=== PATIENT | male | born 1960 | race Caucasian/White ===

== ENCOUNTER 2017-06-03 22:53 | Observation (INO) | payer MEDICAID, SELFPAY ==
[2017-06-03 22:59] VITALS: BP 132/76; PULSE 97; RESP 18; TEMP 36.6; O2SAT 97; BMI 21.4
--- NOTE | 2017-06-03 23:13 | XR_ITS ---
XR chest AP HISTORY: ITS.REASON: chest pain ORDERING PHYSICIAN: Pankaj Wilson MD PATIENT AGE: 56 years COMPARISON: None available FINDINGS: The cardiomediastinal silhouette and pulmonary vascularity are within normal limits. The lungs are clear without infiltrates, suspicious nodules, or pleural effusions. There is a bone plate overlying the lower cervical spine. Old granulomatous disease with calcified left perihilar lymph nodes and calcified granuloma in the left midlung. No acute bony abnormalities. IMPRESSION: No acute finding
--- NOTE | 2017-06-03 23:15 | PC.NURSE ---
Strong smell of etoh present
[2017-06-03 23:35] LABS: Basophils # 0.1 K/mm3 (0-0.2); Eosinophils # 0.2 K/mm3 (0.0-0.4); Hematocrit 43.4 % (42.0-52.0); Hemoglobin 14.4 g/dL (14.1-18.0); Lymphocytes % 29.9 K/mm3 (10-50); Mean Corpuscular HGB Conc 33.1 g/dL (31.8-35.4); Mean Corpuscular Hemoglobin 34.3 pg (27.0-31.2); Mean Corpuscular Volume 103.7 fl (80-94); Mean Platelet Volume 7.8 fl (7.4-10.4); Monocytes # 0.5 K/mm3 (0.1-1.0); Monocytes % 7.7 % (1.7-9.3); Neutrophils # 3.8 K/mm3 (1.8-7.8); Neutrophils % 58.5 % (37.0-80.0); Platelet Count 285 K/mm3 (142-424); Red Blood Count 4.18 M/mm3 (4.60-6.20); Red Cell Distribution Width 13.1 % (11.5-17.5); White Blood Count 6.6 K/mm3 (4.8-10.8)
--- NOTE | 2017-06-03 23:42 | HMH.EDCP ---
ED Disposition Clinical Impression: Chest pain, CAD (coronary artery disease), HTN (hypertension), Tobacco abuse Disposition: Still a Patient Condition on Discharge: Fair - Critical Care Critical Care Time: No Attestation: On , the high probability of a clinically significant, sudden or life threatening deterioration of the following system(s) required my full and direct attention, intervention and personal management. The time I documented below is in addition to time spent performing reported procedures but includes the following listed in this critical care notation. Medical Decision Making - Chano Inquiry Pt receiving controlled substance: No Chano was queried for this patient: No Vital Signs: 06/03/17 22:59 06/04/17 00:13 Temperature 98 F Temperature Source Oral Pulse Rate [Radial] 97 H 95 H Respiratory Rate 18 20 Blood Pressure [Right Arm] 132/76 122/78 Blood Pressure Mean [Right Arm] 94 92 Blood Pressure Source [Right Arm] Automatic Cuff Automatic Cuff Blood Pressure Position [Right Arm] Sitting Sitting 02 Sat by Pulse Oximetry 97 92 L Oxygen Delivery Method Room Air Room Air - Lab Data Lab Results 06/03/17 23:15: WBC 6.6, RBC 4.18 L, Hgb 14.4, Hct 43.4, MCV 103.7 H, MCH 34.3 H, MCHC 33.1, RDW 13.1, Plt Count 285, MPV 7.8, Neut % (Auto) 58.5, Lymph % (Auto) 29.9, [place] % (Auto) 7.7, Eos % (Auto) 3.0, Baso % (Auto) 1.0, Neut # (Auto) 3.8, Lymph # (Auto) 2.0, [place] # (Auto) 0.5, Eos # (Auto) 0.2, Baso # (Auto) 0.1 06/03/17 23:15: Sodium 139, Potassium 3.4 L, Chloride 104, Carbon Dioxide 25, Anion Gap 13.4, BUN 9, Creatinine 0.74, Estimated Creat Clear 103, Estimated GFR 110, Est GFR ( Amer) 133, Glucose 118 H, Calcium 8.4 L, Total Bilirubin 0.3, AST 83 H, ALT 97 H, Alkaline Phosphatase 89, Total Protein 7.2, Albumin 3.4, Globulin 3.8 H, Albumin/Globulin Ratio 0.9 L 06/03/17 23:15: Total Creatine Kinase 150, CK-MB (CK-2) 3.9 H, CK-MB (CK-2) Rel Index 2.6, Troponin I < 0.02 Result diagrams: 06/03/17 23:15 06/03/17 23:15 Orders (Tests/Meds): ED MEDICATIONS Discontinued Medications Generic Name Dose Route Start Last Admin Trade Name Sasha PRN Reason Stop Dose Admin Aspirin 324 mg 06/04/17 00:15 Aspirin 81mg Chewable Tablet PO 06/04/17 00:16 ONCE ONE ORDERS Category Date Time Status Chest XR AP view [XR chest AP] Stat Exams 06/03/17 23:13 Taken EKG Request [ECG Request by /Nse] Stat Y 06/03/17 23:12 Ordered - ECG Data Tracing #1 Normal sinus rhythm 92/min , normal P-wave QRS and T waves, early repolarization no acute findings discussed with the [facility] operations staff officer Dr. Jhaveri. ECG initial impression date: 06/03/17 ECG initial impression time: 23:46 Medical Decision Narrative: I discussed with Dr. bruce the on-call physician for unassigned patients, vitamin admit the patient for observation and consult cardiology consult. I discussed the patient EKG with Dr. Jhaveri the [facility] operations staff officer who believed that this is an repolarization no ST elevation. First set of troponin was negative patient would be admitted to Dr. bruce for rule out [place] protocol. I checked with the rooming house operator this patient has not been admitted to this hospital in the past. Chest Pain HPI - General Chief Complaint: Chest Pain Stated Complaint: c/o chest pain Time Seen by Provider: 06/03/17 23:00 Mode of Arrival: EMS Limitations: No Limitations Description of Symptoms (Recalled from ER Triage Doc. by RN): c/o pressure to chest of chest. brought in accompanied by [facility] police department - History of Present Illness HPI narrative: 56 years old white male with history of anxiety, pression, hypertension coronary artery disease that required stenting in June 2016 at [facility]. The patient claims to have no primary care physician in area. Today at 2100, he had a verbal altercation with 1 of the residents at the [facility] upon the police arrival and d
--- NOTE | 2017-06-03 23:45 | ED_ITS ---
ED Disposition Clinical Impression: Chest pain, CAD (coronary artery disease), HTN (hypertension), Tobacco abuse Disposition: Still a Patient Condition on Discharge: Fair - Critical Care Critical Care Time: No Attestation: On , the high probability of a clinically significant, sudden or life threatening deterioration of the following system(s) required my full and direct attention, intervention and personal management. The time I documented below is in addition to time spent performing reported procedures but includes the following listed in this critical care notation. Medical Decision Making - Chano Inquiry Pt receiving controlled substance: No Chano was queried for this patient: No Vital Signs: 06/03/17 22:59 06/04/17 00:13 Temperature 98 F Temperature Source Oral Pulse Rate [Radial] 97 H 95 H Respiratory Rate 18 20 Blood Pressure [Right Arm] 132/76 122/78 Blood Pressure Mean [Right Arm] 94 92 Blood Pressure Source [Right Arm] Automatic Cuff Automatic Cuff Blood Pressure Position [Right Arm] Sitting Sitting 02 Sat by Pulse Oximetry 97 92 L Oxygen Delivery Method Room Air Room Air - Lab Data Lab Results 06/03/17 23:15: WBC 6.6, RBC 4.18 L, Hgb 14.4, Hct 43.4, MCV 103.7 H, MCH 34.3 H , MCHC 33.1, RDW 13.1, Plt Count 285, MPV 7.8, Neut % (Auto) 58.5, Lymph % (Auto ) 29.9, [place] % (Auto) 7.7, Eos % (Auto) 3.0, Baso % (Auto) 1.0, Neut # (Auto) 3.8, Lymph # (Auto) 2.0, [place] # (Auto) 0.5, Eos # (Auto) 0.2, Baso # (Auto) 0.1 06/03/17 23:15: Sodium 139, Potassium 3.4 L, Chloride 104, Carbon Dioxide 25, Anion Gap 13.4, BUN 9, Creatinine 0.74, Estimated Creat Clear 103, Estimated GFR 110, Est GFR ( Amer) 133, Glucose 118 H, Calcium 8.4 L, Total Bilirubin 0.3, AST 83 H, ALT 97 H, Alkaline Phosphatase 89, Total Protein 7.2, Albumin 3.4, Globulin 3.8 H, Albumin/Globulin Ratio 0.9 L 06/03/17 23:15: Total Creatine Kinase 150, CK-MB (CK-2) 3.9 H, CK-MB (CK-2) Rel Index 2.6, Troponin I < 0.02 Result diagrams: 06/03/17 23:15 06/03/17 23:15 Orders (Tests/Meds): ED MEDICATIONS Discontinued Medications Generic Name Dose Route Start Last Admin Trade Name Sasha PRN Reason Stop Dose Admin Aspirin 324 mg 06/04/17 00:15 Aspirin 81mg Chewable Tablet PO 06/04/17 00:16 ONCE ONE ORDERS Category Date Time Status Chest XR AP view [XR chest AP] Stat Exams 06/03/17 23:13 Taken EKG Request [ECG Request by /Nse] Stat Y 06/03/17 23:12 Ordered - ECG Data Tracing #1 Normal sinus rhythm 92/min , normal P-wave QRS and T waves, early repolarization no acute findings discussed with the tube drawing supervisor Dr. Jhaveri. ECG initial impression date: 06/03/17 ECG initial impression time: 23:46 Medical Decision Narrative: I discussed with Dr. bruce the on-call physician for unassigned patients, vitamin admit the patient for observation and consult cardiology consult. I discussed the patient EKG with Dr. Jhaveri the tube drawing supervisor who believed that this is an repolarization no ST elevation. First set of troponin was negative patient would be admitted to Dr. bruce for rule out [place] protocol. I checked with the visiting housekeeper this patient has not been admitted to this hospital in the past. Chest Pain HPI - General Chief Complaint: Chest Pain Stated Complaint: c/o chest pain Time Seen by Provider:
[2017-06-03 23:52] LABS: Alanine Aminotransferase 97 U/L (12-78); Albumin Level 3.4 gm/dL (3.4-5.0); Albumin/Globulin Ratio 0.9 (1.1-1.8); Alkaline Phosphatase 89 U/L (46-116); Anion Gap 13.4 mEq/L (5-15); Aspartate Amino Transferase 83 U/L (15-37); Bilirubin,Total 0.3 mg/dL (0.2-1.0); Blood Urea Nitrogen 9 mg/dL (7-18); Calcium 8.4 mg/dL (8.5-10.1); Carbon Dioxide 25 mmol/L (21.0-32.0); Chloride 104 mmol/L (98-107); Creatinine Clearance Estimated 103 mL/min (0-300); Creatinine,Serum 0.74 mg/dL (0.70-1.30); Estimated Glomerular Filt Rate 110 ml/min (>60); GFR (African American) 133 ML/MIN (>60); Globulin 3.8 gm/dl (1.3-3.2); Glucose 118 mg/dL (74-106); Potassium 3.4 mmoL/L (3.5-5.1); Sodium 139 mmol/L (136-145); Total Protein,Serum 7.2 gm/dL (6.4-8.2)
[2017-06-04] VITALS (13 sets, daily range): BP systolic 122–167; BP diastolic 65–103; PULSE 36–106; RESP 16–20; TEMP 36.5–37.2; O2SAT 92–99; BMI 21.3
[2017-06-04 00:03] LABS: CKMB Relative Index 2.6 U/L (0-4.0); Creatine Kinase 150 U/L (39-308); Creatine Kinase MB 3.9 ng/ml (0.0-3.6); Troponin I < 0.02 ng/ml (0.00-0.06)
--- NOTE | 2017-06-04 00:12 | PC.NURSE ---
[place] [employer] department at bedside, person from court to release from custody at bedside. Alert, oriented, strong smell of ETOH present. Denies any chest pain at this time.
--- NOTE | 2017-06-04 01:13 | PC.NURSE ---
PT STATES THAT HE IS HOMELESS AND HASNT HAD ANY OF HIS MEDICATIONS FOR SEVERAL MONTHS. PT STATES HE USED A PHARMACY IN [place] BUT HAS NOT WENT TO REFILL HIS MEDICATIONS IN A LONG TIME. PT DOES NOT KNOW THE DOSING FOR HIS MEDICATIONS OR WHAT HE TAKES.
--- NOTE | 2017-06-04 05:29 | PC.NURSE ---
PATIENT ADMITTED THIS SHIFT. HE HAS BEEN COOPERATIVE. SLEEPING ON AND OFF. NO C/O CHEST PAIN SINCE HE ARRIVED TO FLOOR. VSS. PATIENT CURRENTLY IN BED WATCHING TV. WILL CONTINUE TO MONITOR.
--- NOTE | 2017-06-04 06:37 | PC.NURSE ---
DELBERT Morton, notified of order for Dr Jhaveri consult
[2017-06-04 06:43] LABS: Basophils # 0.1 K/mm3 (0-0.2); Basophils % 1.4 % (0.1-2.0); Eosinophils # 0.2 K/mm3 (0.0-0.4); Eosinophils % 3.1 % (0.1-12.0); Hematocrit 46.1 % (42.0-52.0); Hemoglobin 15.6 g/dL (14.1-18.0); Lymphocytes # 1.1 K/mm3 (0.7-4.5); Lymphocytes % 22.2 K/mm3 (10-50); Mean Corpuscular HGB Conc 33.8 g/dL (31.8-35.4); Mean Corpuscular Hemoglobin 34.9 pg (27.0-31.2); Mean Corpuscular Volume 103.4 fl (80-94); Mean Platelet Volume 7.8 fl (7.4-10.4); Monocytes # 0.5 K/mm3 (0.1-1.0); Monocytes % 9.4 % (1.7-9.3); Neutrophils # 3.2 K/mm3 (1.8-7.8); Neutrophils % 63.9 % (37.0-80.0); Platelet Count 282 K/mm3 (142-424); Red Blood Count 4.46 M/mm3 (4.60-6.20); Red Cell Distribution Width 13.1 % (11.5-17.5)
[2017-06-04 06:53] LABS: Blood Urea Nitrogen 7 mg/dL (7-18); Carbon Dioxide 27 mmol/L (21.0-32.0); Chloride 105 mmol/L (98-107); Creatinine Clearance Estimated 109 mL/min (0-300); Estimated Glomerular Filt Rate 118 ml/min (>60); GFR (African American) 142 ML/MIN (>60); Glucose 93 mg/dL (74-106); Sodium 137 mmol/L (136-145)
--- NOTE | 2017-06-04 07:33 | PC.NURSE ---
REPORT GIVEN TO Coco KU W/C
--- NOTE | 2017-06-04 08:13 | P.CONPHA_ITS ---
[facility] Pharmacy VTE Monitoring - Patient Demographics Admission date: 06/04/17 Report Date: 06/04/17 Time: 08:13 Allergies/Adverse Reactions: Patient Allergies haloperidol [From Haldol] Allergy (Unknown, Verified 06/03/17 23:09) divalproex sodium [From Depakote] Allergy (Verified 06/03/17 23:10) ketorolac [From Toradol] Allergy (Verified 06/03/17 23:09) lamotrigine [From Lamictal] Allergy (Verified 06/03/17 23:10) Height: 1.73 m Weight: 63.588 kg Patient Problems: Current Active Problems Chest pain (Acute) CAD (coronary artery disease) (Acute) HTN (hypertension) (Acute) Tobacco abuse (Acute) - VTE Risk Labs: VTE Related Lab Results Hgb 15.6 g/dL (14.1-18.0) 06/04/17 06:16 Hct 46.1 % (42.0-52.0) 06/04/17 06:16 Plt Count 282 K/mm3 (142-424) 06/04/17 06:16 BUN 7 mg/dL (7-18) 06/04/17 06:16 Creatinine 0.70 mg/dL (0.70-1.30) 06/04/17 06:16 Estimated Creat Clear 109 mL/min (0-300) 06/04/17 06:16 VTE Score: 7 VTE Risk Level: Moderate Risk Clinical Trial Participant: No - Prophylaxis VTE Prophylaxis Ordered?: Yes Types of VTE Prophylaxis: TEDS Knee High
--- NOTE | 2017-06-04 08:16 | NM_ITS ---
NM cyril perf SPECT rest str CLINICAL INDICATION: ITS.REASON: chest pain, CAD ORDERING PHYSICIAN: Pankaj Wilson MD PATIENT AGE: 56 years COMPARISON: None DOSE: 10.89 mCi technetium Myoview intravenously at rest followed by 31.1 mCi technetium Myoview following the intravenous ministration of 0.4 mg of Lexiscan. Resting blood pressure is 164/97. Stress blood pressure 136/76. FINDINGS: Ejection fraction is calculated to be 61%. No obvious wall motion abnormalities. SPECT and polar map images reviewed. No fixed or reversible defects are evident that would indicate infarction or ischemia. Slight decrease activity noted in inferior wall on the stress images on the horizontal short axis not duplicated on the additional images possibly related to diaphragmatic attenuation and of questionable clinical significance. IMPRESSION: 1. Normal ejection fraction of 61%. 2. No definite evidence of ischemia or infarction
--- NOTE | 2017-06-04 08:31 | HMH.HP ---
*Admission Date: 06/04/17 *Chief complaint: chest pain *History of present illness: Mr. Tracy is a 56-year-old male who has been incarcerated off and on for the past few years. He states he was in [place] when he got a call from a woman at the [facility]. He hitched a ride to [place] and began having some chest pressure while in the vehicle coming to [place]. He then reached the [facility] and a gentleman at the [facility] told him he was not allowed in. The two men got in an argument and the police were called. Mr. tracy states he was charged with disorderly conduct and all of the stress caused his chest pain to worsen. He did have some palpitations and some shortness of breath along with some nausea. He was taken by ambulance to the hospital and was given a nitroglycerin in the ambulance. He states his chest pain did not resolve but he developed a DOUGLASS. He is still having some chest pain at this time, although it has improved. Of note he did have a stent placed last year at [facility]. He has had a heart attack as well approximately 2-3 years ago. Cardiology has been consulted. [facility] History Medical History: Reports:: Asthma, Atrial Fibrillation, Congestive Heart Failure, Coronary Artery Disease, Hyperlipidemia, Hypertension, Myocardial Infarction, Seizures Denies:: Cancer, Diabetes Mellitus Type 1, Diabetes Mellitus Type 2, MRSA Other Surgeries: Yes: Cardiac Catheterization Amputation: No Fractures: No - *Social History Educational Level: Attended College Smoking Status: Current every day smoker Tobacco Type: cigarettes Alcohol Intake: current Alcohol Intake Frequency:: 0-2 drinks per day Occupational Status: disabled Housing: homeless - Psychiatric History Expresses thoughts of harming self/others: None Suicide Plan Description: No Plan *Family Hx:: Cancer, Coronary Artery Disease, Diabetes, Heart Attack, Hyperlipidemia, Hypertension, Stroke, Tuberculosis Review of Systems - Constitutional Reports headache(s), Denies fever(s), Denies weakness - Eyes Denies blurry vision, Denies double vision - ENT Reports nasal congestion, Denies sore throat - *Cardiovascular Reports chest pain, Reports fast heart rate - *Respiratory Reports cough, Reports shortness of breath - *Gastrointestinal Reports nausea, Denies abdominal pain, Denies loose stools, Denies vomiting - *Genitourinary Denies difficulty urinating, Denies painful urination - *Musculoskeletal Reports joint pain (back and left hip) - *Neurologic Reports headache(s), Denies dizziness, Denies weakness Meds Home Medications Medication Instructions Recorded Confirmed Type Unobtainable [Unobtainable] 06/04/17 06/04/17 History Allergies Allergy/AdvReac Type Severity Reaction Status Date / Time haloperidol [From Haldol] Allergy Unknown Verified 06/03/17 23:09 divalproex sodium Allergy Verified 06/03/17 23:10 [From Depakote] ketorolac [From Toradol] Allergy Verified 06/03/17 23:09 lamotrigine [From Lamictal] Allergy Verified 06/03/17 23:10 Exam Vital signs and Labs for Last 24 Hours: Temp Pulse Resp BP Pulse Ox 98.9 F 36 L 20 167/103 99 06/04/17 07:26 06/04/17 07:26 06/04/17 07:26 06/04/17 07:26 06/04/17 07:26 Lab Results 06/03/17 23:15: WBC 6.6, RBC 4.18 L, Hgb 14.4, Hct 43.4, MCV 103.7 H, MCH 34.3 H, MCHC 33.1, RDW 13.1, Plt Count 285, MPV 7.8, Neut % (Auto) 58.5, Lymph % (Auto) 29.9, [place] % (Auto) 7.7, Eos % (Auto) 3.0, Baso % (Auto) 1.0, Neut # (Auto) 3.8, Lymph # (Auto) 2.0, [place] # (Auto) 0.5, Eos # (Auto) 0.2, Baso # (Auto) 0.1 06/03/17 23:15: Sodium 139, Potassium 3.4 L, Chloride 104, Carbon Dioxide 25, Anion Gap 13.4, BUN 9, Creatinine 0.74, Estimated Creat Clear 103, Estimated GFR 110, Est GFR ( Amer) 133, Glucose 118 H, Calcium 8.4 L, Total Bilirubin 0.3, AST 83 H, ALT 97 H, Alkaline Phosphatase 89, Total Protein 7.2, Albumin 3.4, Globulin 3.8 H, Albumin/Globulin Ratio 0.9 L
--- NOTE | 2017-06-04 08:34 | P.HP_ITS ---
*Admission Date: 06/04/17 *Chief complaint: chest pain *History of present illness: Mr. Tracy is a 56-year-old male who has been incarcerated off and on for the past few years. He states he was in [place] when he got a call from a woman at the [facility]. He hitched a ride to [place] and began having some chest pressure while in the vehicle coming to [place]. He then reached the [facility] and a gentleman at the [facility] told him he was not allowed in. The two men got in an argument and the police were called. Mr. tracy states he was charged with disorderly conduct and all of the stress caused his chest pain to worsen. He did have some palpitations and some shortness of breath along with some nausea. He was taken by ambulance to the hospital and was given a nitroglycerin in the ambulance. He states his chest pain did not resolve but he developed a DOUGLSAS. He is still having some chest pain at this time, although it has improved. Of note he did have a stent placed last year at [facility]. He has had a heart attack as well approximately 2-3 years ago. Cardiology has been consulted. [facility] History Medical History: Reports:: Asthma, Atrial Fibrillation, Congestive Heart Failure , Coronary Artery Disease, Hyperlipidemia, Hypertension, Myocardial Infarction, Seizures Denies:: Cancer, Diabetes Mellitus Type 1, Diabetes Mellitus Type 2, MRSA Other Surgeries: Yes: Cardiac Catheterization Amputation: No Fractures: No - *Social History Educational Level: Attended College Smoking Status: Current every day smoker Tobacco Type: cigarettes Alcohol Intake: current Alcohol Intake Frequency:: 0-2 drinks per day Occupational Status: disabled Housing: homeless - Psychiatric History Expresses thoughts of harming self/others: None Suicide Plan Description: No Plan *Family Hx:: Cancer, Coronary Artery Disease, Diabetes, Heart Attack, Hyperlipidemia, Hypertension, Stroke, Tuberculosis Review of Systems - Constitutional Reports headache(s), Denies fever(s), Denies weakness - Eyes Denies blurry vision, Denies double vision - ENT Reports nasal congestion, Denies sore throat - *Cardiovascular Reports chest pain, Reports fast heart rate - *Respiratory Reports cough, Reports shortness of breath - *Gastrointestinal Reports nausea, Denies abdominal pain, Denies loose stools, Denies vomiting - *Genitourinary Denies difficulty urinating, Denies painful urination - *Musculoskeletal Reports joint pain (back and left hip) - *Neurologic Reports headache(s), Denies dizziness, Denies weakness Meds Home Medications Medication Instructions Recorded Confirmed Type Unobtainable [Unobtainable] 06/04/17 06/04/17 History Allergies Allergy/AdvReac Type Severity Reaction Status Date / Time haloperidol [From Haldol] Allergy Unknown Verified 06/03/17 23:09 divalproex sodium Allergy Verified 06/03/17 23:10 [From Depakote] ketorolac [From Toradol] Allergy Verified 06/03/17 23:09 lamotrigine [From Lamictal] Allergy Verified 06/03/17 23:10 Exam Vital signs and Labs for Last 24 Hours: Temp Pulse Resp BP Pulse Ox 98.9 F 36 L 20 167/103 99 06/04/17 07:26 06/04/17 07:26 06/04/17 07:26 06/04/17 07:26 06/04/17 07:26 Lab Results 06/03/17 23:15: WBC 6.6, RBC 4.18 L, Hgb 14.4, Hct 43.4, MCV 103.7 H, MCH 34.3 H , MCHC 33.1, RDW 13.1, Plt Count 285, MPV 7.8, Neut % (Auto) 58.5, Lymph % (Auto ) 29.9, M
[2017-06-04 08:56] LABS: CKMB Relative Index 2.5 U/L (0-4.0); Creatine Kinase 136 U/L (39-308); Creatine Kinase MB 3.4 ng/ml (0.0-3.6); Troponin I < 0.02 ng/ml (0.00-0.06)
--- NOTE | 2017-06-04 09:05 | HMH.CNCARD ---
History of Present Illness Consult date: 06/04/17 Requesting physician: Pankaj Wilson Consult reason: chest pain Chief complaint: chest pain Additional Medical History:: 1. Coronary artery disease A. History of AL per patient B. Street of coronary stent per patient in June 2016 at [facility] in [facility]. Patient states it was a steel stent and he only had to take dual anti-platelet therapy for 30 days. He relates there was some additional blockages that did not need intervention at that time. C. Patient relates a repeat cardiac catheterization in [facility] sometime towards the end of 2016 or early 2017 at which time no intervention was needed. 2. Continued tobacco use of one pack per day 3. History of disability based on chronic back issues and pain. 4. History of incarceration for many years, released in 2016 5. Hypertension 6. Medication noncompliance 7. Hyperlipidemia 8. History of atrial fibrillation with history of amiodarone use History of present illness: Mr. Yuan is a 56-year-old male who has been incarcerated off and on for the past few years. He states he was in [place] when he got a call from a woman at the [facility]. He hitched a ride to [employer] and began having some chest pressure while in the vehicle coming to [place]. He then reached the [facility] and a gentleman at the [facility] told him he was not allowed in. The two men got in an argument and the police were called. Mr. yuan states he was charged with disorderly conduct and all of the stress caused his chest pain to worsen. He did have some palpitations and some shortness of breath along with some nausea. He was taken by ambulance to the hospital and was given a nitroglycerin in the ambulance. He states his chest pain did not resolve but he developed a DOUGLASS. He is still having some chest pain at this time, although it has improved. Of note he did have a stent placed last year at [facility]. He has had a heart attack as well approximately 2-3 years ago. The above per Noemi Schaeffer PA-C for Dr. Wilson. Patient denies resolution of chest pain with coronary stenting last year. His symptoms do not occur with activity and did not seem to resolve with nitroglycerin last evening. Patient relates that he had a repeat cardiac catheterization in [place], [place] sometime the end of 2017/early 2018 at which time no further intervention was required. Troponin has returned normal. EKG reviewed with Dr. Jhaveri shows repolarization changes. Since being released from the penal system last year patient has not been able to secure his medications but also relates he has moving from place to place quite frequently. [facility] History Medical History: Reports:: Asthma, Atrial Fibrillation, Congestive Heart Failure, Coronary Artery Disease, Hyperlipidemia, Hypertension, Myocardial Infarction, Seizures Denies:: Cancer, Diabetes Mellitus Type 1, Diabetes Mellitus Type 2, MRSA Other Surgeries: Yes: Cardiac Catheterization Amputation: No Fractures: No - *Social History Educational Level: Attended College Smoking Status: Current every day smoker Tobacco Type: cigarettes Alcohol Intake: current Alcohol Intake Frequency:: 0-2 drinks per day Occupational Status: disabled Housing: homeless - Psychiatric History Expresses thoughts of harming self/others: None Suicide Plan Description: No Plan *Family Hx:: Cancer, Coronary Artery Disease, Diabetes, Heart Attack, Hyperlipidemia, Hypertension, Stroke, Tuberculosis Meds Home Medications Medication Instructions Recorded Confirmed Type Unobtainable [Unobtainable] 06/04/17 06/04/17 History Allergies Allergy/AdvReac Type Severity Reaction Status Date / Time haloperidol [From Haldol] Allergy Unknown Verified 06/03/17 23:09 divalproex sodium Allergy Verified 06/03/17 23:10 [From Depakote] ketorolac [From Toradol] Allergy Verified 06/03/17 23
--- NOTE | 2017-06-04 09:16 | P.CONS_ITS ---
History of Present Illness Consult date: 06/04/17 Requesting physician: Pankaj Wilson Consult reason: chest pain Chief complaint: chest pain Additional Medical History:: 1. Coronary artery disease A. History of AR per patient B. Street of coronary stent per patient in June 2016 at [facility] in [facility]. Patient states it was a steel stent and he only had to take dual anti-platelet therapy for 30 days. He relates there was some additional blockages that did not need intervention at that time. C. Patient relates a repeat cardiac catheterization in [facility] sometime towards the end of 2016 or early 2017 at which time no intervention was needed. 2. Continued tobacco use of one pack per day 3. History of disability based on chronic back issues and pain. 4. History of incarceration for many years, released in 2016 5. Hypertension 6. Medication noncompliance 7. Hyperlipidemia 8. History of atrial fibrillation with history of amiodarone use History of present illness: Mr. Yuan is a 56-year-old male who has been incarcerated off and on for the past few years. He states he was in [place] when he got a call from a woman at the [facility]. He hitched a ride to [employer] and began having some chest pressure while in the vehicle coming to [place]. He then reached the [facility] and a gentleman at the [facility] told him he was not allowed in. The two men got in an argument and the police were called. Mr. yuan states he was charged with disorderly conduct and all of the stress caused his chest pain to worsen. He did have some palpitations and some shortness of breath along with some nausea. He was taken by ambulance to the hospital and was given a nitroglycerin in the ambulance. He states his chest pain did not resolve but he developed a DOUGLASS. He is still having some chest pain at this time, although it has improved. Of note he did have a stent placed last year at [facility]. He has had a heart attack as well approximately 2-3 years ago. The above per Noemi Schaeffer PA-C for Dr. Wilson. Patient denies resolution of chest pain with coronary stenting last year. His symptoms do not occur with activity and did not seem to resolve with nitroglycerin last evening. Patient relates that he had a repeat cardiac catheterization in [place], [place] sometime the end of 2017/early 2018 at which time no further intervention was required. Troponin has returned normal. EKG reviewed with Dr. Jhaveri shows repolarization changes. Since being released from the penal system last year patient has not been able to secure his medications but also relates he has moving from place to place quite frequently. [facility] History Medical History: Reports:: Asthma, Atrial Fibrillation, Congestive Heart Failure , Coronary Artery Disease, Hyperlipidemia, Hypertension, Myocardial Infarction, Seizures Denies:: Cancer, Diabetes Mellitus Type 1, Diabetes Mellitus Type 2, MRSA Other Surgeries: Yes: Cardiac Catheterization Amputation: No Fractures: No - *Social History Educational Level: Attended College Smoking Status: Current every day smoker Tobacco Type: cigarettes Alcohol Intake: current Alcohol Intake Frequency:: 0-2 drinks per day Occupational Status: disabled Housing: homeless - Psychiatric History Expresses thoughts of harming self/others: None Suicide Plan Description: No Plan *Family Hx:: Cancer, Coronary Artery Disease, Diabetes, Heart Attack, Hyperlipidemia, Hypertension, Stroke, Tuberculosis Meds Home Medications Medication Instructions Recorded Confirmed Type
--- NOTE | 2017-06-04 09:22 | CA_ITS ---
PROCEDURE: 2-D M-mode and color Doppler study INDICATIONS FOR THE TEST: Chest pain+ COPD+ Heart Murmur Tobacco Smoking+ Palpitations+ Fatigue Syncope Edema Hypertension+Diabetes Mellitus Rheumatic Fever SOB+JEROME+Obesity Hyperlipidemia+ Family History HD Additional History cad (1 stent), Asthma PATIENT INFORMATION HEIGHT: 68 WEIGHT: 140 GENDER: Male B/P: 167/103 2-D/M-MODE INTERPRETATION: 2-D MEASUREMENTS OBSERVED VALUES IN CMS Right Ventricular Dimension (RVDd) 2.0 Interventricular Septum (Thickness)(IVsd) 0.9 Left Ventricular Internal Dimensions(LVIDd) 4.5 Left Ventricular Posterior Wall (Thickness)(LVPWd) 0.9 Aortic Root 2.8 Aortic Cusp Separation 1.9 Left Atrial Dimensions (LAD) 2.6 2D 1. Left atrium is normal size, left ventricle is normal size, there is no concentric left ventricular hypertrophy, visually estimated ejection fraction approximately 55% with no obvious regional wall motion abnormality. 2. The right atrium and right ventricle are normal size and contractility. 3. The aortic, mitral and tricuspid valve are grossly normal. 5. The pulmonic valve is poorly visualized. 6. No significant pericardial effusion noted. DOPPLER INTERROGATION: Doppler interrogation of the aortic, mitral and tricuspid valvular presence of mild mitral and tricuspid regurgitation, tricuspid and jet velocity is insufficient for calculation of the right ventricular systolic pressure, grade 1 diastolic dysfunction seen without tissue Doppler evidence of raised left atrial pressure. CONCLUSION: 1. Normal left ventricular size, preserved left ventricular systolic function, visually estimated ejection fraction 55% with no obvious regional wall motion abnormality, grade 1 diastolic dysfunction seen without tissue Doppler evidence of raised left atrial pressure. 2. Mild mitral and tricuspid regurgitation 3. No significant pericardial effusion noted.
--- NOTE | 2017-06-04 16:51 | HMH.ACPN2 ---
Internal Medicine - PN: Subj *Date: 06/04/17 *Time: 16:51 Interval history: Mr. Tracy's cardiac studies have been completed and seemed to be negative. His ultrasound report is reviewed. He did fine on the Cardiolite GXT. Cardiolite results are reviewed with Dr. Henning and are negative. Thus, he is ready for discharge according to cardiology.. He is not certain if he is going to stay in this area are returned to [place]. He thinks he would prefer to return to [place]. He does not see a primary care physician in either area. Reassuring is the fact that he had a cardiac cath about a month ago in [place] and it was negative. Exam Vital signs and Labs for Last 24 Hours: Temp Pulse Resp BP Pulse Ox 98.3 F 92 H 20 157/81 99 06/04/17 11:54 06/04/17 11:54 06/04/17 11:54 06/04/17 11:54 06/04/17 11:54 Laboratory Results - last 24 hr 06/04/17 06:16: WBC 5.0, RBC 4.46 L, Hgb 15.6, Hct 46.1, MCV 103.4 H, MCH 34.9 H, MCHC 33.8, RDW 13.1, Plt Count 282, MPV 7.8, Neut % (Auto) 63.9, Lymph % (Auto) 22.2, [place] % (Auto) 9.4 H, Eos % (Auto) 3.1, Baso % (Auto) 1.4, Neut # (Auto) 3.2, Lymph # (Auto) 1.1, [place] # (Auto) 0.5, Eos # (Auto) 0.2, Baso # (Auto) 0.1 06/04/17 06:16: Sodium 137, Potassium 4.0, Chloride 105, Carbon Dioxide 27, Anion Gap 9.0, BUN 7, Creatinine 0.70, Estimated Creat Clear 109, Estimated GFR 118, Est GFR ( Amer) 142, Glucose 93 D 06/04/17 06:16: Total Creatine Kinase 136, CK-MB (CK-2) 3.4, CK-MB (CK-2) Rel Index 2.5, Troponin I < 0.02 I & O for Last 24 hours: Intake & Output 03/21/18 06/03/17 06/04/17 06/05/17 11:59 11:59 11:59 11:59 Intake Total 250 / 250 Balance 250 / 250 Weight 140 lb 3 oz - Constitutional no acute distress Comments: Though he does complain of pain in the left side and requests a dose of pain medication before leaving. - *Routine Respiratory Exam Comments: There air movement than earlier. Some scattered wheezes. - *Routine Cardiovascular Exam Present: RRR - *Routine Abdominal Exam Present: soft. Absent: tenderness - *Routine Extremities Exam Absent: edema Assessment and Plan (1) Chest pain Current visit: Yes Status: Acute Category: Medical Code(s): R07.9 - Chest pain, unspecified (2) Wheezing Current visit: Yes Status: Acute Category: Medical Code(s): R06.2 - Wheezing (3) Asthma Current visit: Yes Status: Chronic Category: Medical Code(s): J45.909 - Unspecified asthma, uncomplicated (4) Hyperlipidemia Current visit: Yes Status: Chronic Category: Medical Code(s): E78.5 - Hyperlipidemia, unspecified (5) CAD (coronary artery disease) Current visit: Yes Status: Chronic Category: Medical Code(s): I25.10 - Atherosclerotic heart disease of [place] coronary artery without angina pectoris (6) HTN (hypertension) Current visit: Yes Status: Chronic Category: Medical Code(s): I10 - Essential (primary) hypertension (7) Tobacco abuse Current visit: Yes Status: Chronic Category: Medical Code(s): Z72.0 - Tobacco use - Assessment and plan all Dx Assessment and Plan for all problems:: Discharge. Prescriptions will be given for the blood pressure medications.
--- NOTE | 2017-06-04 16:54 | P.PN_ITS ---
Internal Medicine - PN: Subj *Date: 06/04/17 *Time: 16:51 Interval history: Mr. Tracy's cardiac studies have been completed and seemed to be negative. His ultrasound report is reviewed. He did fine on the Cardiolite GXT. Cardiolite results are reviewed with Dr. Henning and are negative. Thus, he is ready for discharge according to cardiology.. He is not certain if he is going to stay in this area are returned to [place]. He thinks he would prefer to return to [place]. He does not see a primary care physician in either area. Reassuring is the fact that he had a cardiac cath about a month ago in [place] and it was negative. Exam Vital signs and Labs for Last 24 Hours: Temp Pulse Resp BP Pulse Ox 98.3 F 92 H 20 157/81 99 06/04/17 11:54 06/04/17 11:54 06/04/17 11:54 06/04/17 11:54 06/04/17 11:54 Laboratory Results - last 24 hr 06/04/17 06:16: WBC 5.0, RBC 4.46 L, Hgb 15.6, Hct 46.1, MCV 103.4 H, MCH 34.9 H , MCHC 33.8, RDW 13.1, Plt Count 282, MPV 7.8, Neut % (Auto) 63.9, Lymph % (Auto ) 22.2, [place] % (Auto) 9.4 H, Eos % (Auto) 3.1, Baso % (Auto) 1.4, Neut # (Auto) 3.2, Lymph # (Auto) 1.1, [place] # (Auto) 0.5, Eos # (Auto) 0.2, Baso # (Auto) 0.1 06/04/17 06:16: Sodium 137, Potassium 4.0, Chloride 105, Carbon Dioxide 27, Anion Gap 9.0, BUN 7, Creatinine 0.70, Estimated Creat Clear 109, Estimated GFR 118, Est GFR ( Amer) 142, Glucose 93 D 06/04/17 06:16: Total Creatine Kinase 136, CK-MB (CK-2) 3.4, CK-MB (CK-2) Rel Index 2.5, Troponin I < 0.02 I & O for Last 24 hours: Intake & Output 03/21/18 06/03/17 06/04/17 06/05/17 11:59 11:59 11:59 11:59 Intake Total 250 / 250 Balance 250 / 250 Weight 140 lb 3 oz - Constitutional no acute distress Comments: Though he does complain of pain in the left side and requests a dose of pain medication before leaving. - *Routine Respiratory Exam Comments: There air movement than earlier. Some scattered wheezes. - *Routine Cardiovascular Exam Present: RRR - *Routine Abdominal Exam Present: soft. Absent: tenderness - *Routine Extremities Exam Absent: edema Assessment and Plan (1) Chest pain Current visit: Yes Status: Acute Category: Medical Code(s): R07.9 - Chest pain, unspecified (2) Wheezing Current visit: Yes Status: Acute Category: Medical Code(s): R06.2 - Wheezing (3) Asthma Current visit: Yes Status: Chronic Category: Medical Code(s): J45.909 - Unspecified asthma, uncomplicated (4) Hyperlipidemia Current visit: Yes Status: Chronic Category: Medical Code(s): E78.5 - Hyperlipidemia, unspecified (5) CAD (coronary artery disease) Current visit: Yes Status: Chronic Category: Medical Code(s): I25.10 - Atherosclerotic heart disease of [place] coronary artery without angina pectoris (6) HTN (hypertension) Current visit: Yes Status: Chronic Category: Medical Code(s): I10 - Essential (primary) hypertension (7) Tobacco abuse Current visit: Yes Status: Chronic Category: Medical Code(s): Z72.0 - Tobacco use - Assessment and plan all Dx Assessment and Plan for all problems:: Discharge. Prescriptions will be given for the blood pressure medications.
--- NOTE | 2017-06-04 16:55 | SW/DCPLANNER ---
RECEIVED A CALL THAT DR MCPHERSON WAS WANTING TO KNOW IF HE CAN DISCHARGE THIS PATIENT, HE STATED HE WAS BROUGHT IN FOR MEDICAL CLEARANCE AND HAS BEEN CLEARED...I MADE CONTACT WITH DISPATCH TO RUN HIS SOCIAL TO SEE IF THERE ARE ANY OUTSTANDING WARRANTS ON HIM BEFORE WE DISCHARGE HIM.. ONCE THEY CALL ME BACK I WILL CONTACT DR MCPHERSON FOR A DISCHARGE...
--- NOTE | 2017-06-06 10:56 | HMH.DCSUM ---
General - General Admission date: 06/04/17 Discharge date: 06/04/17 HPI HPI: Mr. Tracy is a 56-year-old male who has been incarcerated off and on for the past few years. He states he was in [place] when he got a call from a woman at the [facility]. He hitched a ride to [employer] and began having some chest pressure while in the vehicle coming to [place]. He then reached the [facility] and a gentleman at the [facility] told him he was not allowed in. The two men got in an argument and the police were called. Mr. tracy states he was charged with disorderly conduct and all of the stress caused his chest pain to worsen. He did have some palpitations and some shortness of breath along with some nausea. He was taken by ambulance to the hospital and was given a nitroglycerin in the ambulance. He states his chest pain did not resolve but he developed a DOUGLASS. He is still having some chest pain at this time, although it has improved. Of note he did have a stent placed last year at [facility]. He has had a heart attack as well approximately 2-3 years ago. Cardiology has been consulted. Hospital Course Hospital Course: The patient was started on duonebs d/t wheezing. Cardiology felt he would need a stress test. His ultrasound report was reviewed. He did fine on the Cardiolite GXT. Cardiolite results were reviewed with Dr. Henning and were negative. He was stable to be discharged according to cardiology. He was not certain if he was going to stay in this area or return to [place]. He thinks he would prefer to return to [place]. He does not see a primary care physician in either area. Reassuring is the fact that he had a cardiac cath about a month ago in [place] and it was negative. Objective Vital signs: Temp Pulse Resp BP Pulse Ox 98.3 F 90 20 157/81 99 06/04/17 11:54 06/04/17 16:00 06/04/17 11:54 06/04/17 11:54 06/04/17 11:54 Narrative: - Constitutional no acute distress - *Routine HEENT Exam Head: Present: normocephalic, atraumatic Eye: Present: EOMI, PERRL ENT: Present: mucous membranes moist - *Routine Neck Exam Present: supple, full ROM - *Routine Respiratory Exam Present: decreased breath sounds, wheezes. Absent: rales - *Routine Cardiovascular Exam Present: RRR - *Routine Abdominal Exam Present: soft, normoactive bowel sounds. Absent: tenderness - *Routine Extremities Exam Absent: edema - *Routine Skin Exam Present: intact - *Routine Neurological Exam Present: alert, oriented X3 DS: Diagnosis - Discharge Diagnosis (1) Chest pain Status: Acute (2) Wheezing Status: Acute (3) Asthma Status: Chronic (4) Hyperlipidemia Status: Chronic (5) CAD (coronary artery disease) Status: Chronic (6) HTN (hypertension) Status: Chronic (7) Tobacco abuse Status: Chronic Discharge Plan - Patient Discharge Instructions ACTIVITY: Continue current activity DIET: continue same diet - Follow up Plan Disposition: Home, Self-Care Prescriptions/Medication Reconciliation: New Lisinopril/Hydrochlorothiazide [Lisinopril-Hctz 10-12.5 mg Tab] 1 tab PO DAILY #30 tab Albuterol Sulfate [Albuterol HFA Inhaler] 2 puffs IH Q6HP PRN #1 inh PRN Reason: Shortness Of Breath Or Wheezing
--- NOTE | 2017-06-06 11:00 | P.DS_ITS ---
General - General Admission date: 06/04/17 Discharge date: 06/04/17 HPI HPI: Mr. Tracy is a 56-year-old male who has been incarcerated off and on for the past few years. He states he was in [place] when he got a call from a woman at the [facility]. He hitched a ride to [email or web address] and began having some chest pressure while in the vehicle coming to [place]. He then reached the [facility] and a gentleman at the [facility] told him he was not allowed in. The two men got in an argument and the police were called. Mr. tracy states he was charged with disorderly conduct and all of the stress caused his chest pain to worsen. He did have some palpitations and some shortness of breath along with some nausea. He was taken by ambulance to the hospital and was given a nitroglycerin in the ambulance. He states his chest pain did not resolve but he developed a DOUGLASS. He is still having some chest pain at this time, although it has improved. Of note he did have a stent placed last year at [facility]. He has had a heart attack as well approximately 2-3 years ago. Cardiology has been consulted. Hospital Course Hospital Course: The patient was started on duonebs d/t wheezing. Cardiology felt he would need a stress test. His ultrasound report was reviewed. He did fine on the Cardiolite GXT. Cardiolite results were reviewed with Dr. Henning and were negative. He was stable to be discharged according to cardiology. He was not certain if he was going to stay in this area or return to [place]. He thinks he would prefer to return to [place]. He does not see a primary care physician in either area. Reassuring is the fact that he had a cardiac cath about a month ago in [place] and it was negative. Objective Vital signs: Temp Pulse Resp BP Pulse Ox 98.3 F 90 20 157/81 99 06/04/17 11:54 06/04/17 16:00 06/04/17 11:54 06/04/17 11:54 06/04/17 11:54 Narrative: - Constitutional no acute distress - *Routine HEENT Exam Head: Present: normocephalic, atraumatic Eye: Present: EOMI, PERRL ENT: Present: mucous membranes moist - *Routine Neck Exam Present: supple, full ROM - *Routine Respiratory Exam Present: decreased breath sounds, wheezes. Absent: rales - *Routine Cardiovascular Exam Present: RRR - *Routine Abdominal Exam Present: soft, normoactive bowel sounds. Absent: tenderness - *Routine Extremities Exam Absent: edema - *Routine Skin Exam Present: intact - *Routine Neurological Exam Present: alert, oriented X3 DS: Diagnosis - Discharge Diagnosis (1) Chest pain Status: Acute (2) Wheezing Status: Acute (3) Asthma Status: Chronic (4) Hyperlipidemia Status: Chronic (5) CAD (coronary artery disease) Status: Chronic (6) HTN (hypertension) Status: Chronic (7) Tobacco abuse Status: Chronic Discharge Plan - Patient Discharge Instructions ACTIVITY: Continue current activity DIET: continue same diet - Follow up Plan Disposition: Home, Self-Care Prescriptions/Medication Reconciliation: New Lisinopril/Hydrochlorothiazide [Lisinopril-Hctz 10-12.5 mg Tab] 1 tab PO DAILY #30 tab Albuterol Sulfate [Albuterol HFA Inhaler] 2 puffs IH Q6HP PRN #1 inh PRN Reason: Shortness Of Breath Or Wheezing
--- NOTE | 2017-06-15 01:13 | PC.NURSE ---
Records sent to [facility]
== END 2017-06-04 17:46 | disposition home or self-care (01) ==
LOC: ER 06-04 00:34 → 2ND 06-04 00:54
PROVIDERS: Admitting Provider Family Medicine; Emergency Provider Emergency Medicine; Visit Provider Family Medicine
DX: R07.9 Chest pain, unspecified (principal); J45.909 Unspecified asthma, uncomplicated; I25.10 Atherosclerotic heart disease of native coronary artery without angina pectoris; F17.210 Nicotine dependence, cigarettes, uncomplicated; I25.2 Old myocardial infarction; I10 Essential (primary) hypertension; E78.5 Hyperlipidemia, unspecified; Z88.5 Allergy status to narcotic agent; Z91.09 Other allergy status, other than to drugs and biological substances; Z80.9 Family history of malignant neoplasm, unspecified; Z82.49 Family history of ischemic heart disease and other diseases of the circulatory system; Z83.3 Family history of diabetes mellitus; Z83.49 Family history of other endocrine, nutritional and metabolic diseases; Z82.3 Family history of stroke; Z83.1 Family history of other infectious and parasitic diseases; Z95.5 Presence of coronary angioplasty implant and graft; Z59.0 Homelessness
CPT/HCPCS: 36415; 71045; 78452; 80048; 80053; 82550; 82553; 84484; 85025; 93005; 93017; 93306; 94640; 99284; A9502; G0378; J2785